=== PATIENT | male | born 1960 | race Two or more races ===

== ENCOUNTER → 2022-11-14 | Outpatient (CLI) | payer OTHER ==
--- NOTE | 2022-11-14 08:55 | CT ---
EXAMINATION TYPE: CT chest wo con DATE OF EXAM: 11/14/2022 COMPARISON: None HISTORY: Abnormal lung cox CT DLP: 143.[address] of the chest was performed with lung and mediastinal window settings submitted. The la ck of contrast limits evaluation of the vascular, mediastinal and parenchymal structures including th e upper abdomen. LUNGS: The lungs are clear and free of infiltrate. No atelectasis. No pulmonary nodule or mass is de tected. No pleural effusion. No CT evidence of interstitial lung disease. MEDIASTINUM/MELISSA: Thoracic aorta is of normal caliber with limited evaluation given lack of contrast . The heart is not enlarged. No evidence for mediastinal mass. No lymph nodes greater than 1cm. UPPER ABDOMEN: No significant abnormality is seen. OTHER: No significant other abnormality. IMPRESSION: 1. No discrete abnormality appreciated.
== END | disposition home or self-care (01) ==
LOC: RADCTMAIN 07:27
PROVIDERS: ATTEND Nurse Practitioner
DX: R91.8 Other nonspecific abnormal finding of lung field (principal)
CPT/HCPCS: 71250

== ENCOUNTER → 2022-11-21 | Outpatient (CLI) | payer OTHER ==
--- NOTE | 2022-11-21 12:25 | MR ---
EXAMINATION TYPE: MR brain wo/w con DATE OF EXAM: 11/21/2022 COMPARISON: None HISTORY: Headaches TECHNIQUE: Multiplanar, multisequence images of the brain and brainstem is performed without and with IV contras t, utilizing 6.5 mL intravenous Gadavist . FINDINGS: Diffusion weighted images demonstrate no evidence of a recent infarct or other diffusion ab normality. There multiple focal areas of scattered abnormal white matter signal bilaterally. The ve ntricular system and cisternal spaces are normal in size and appearance. The brain volume is age spencer ropriate. Midline structures demonstrate normal morphology. The craniocervical junction appears within normal limits. Post contrast images demonstrate area of enhancement involving the right orbit measuring 1.8 x 1.4 cm appears separate from the optic nerve on the superior right lateral margin of the orbit. Th e dural venous sinuses appear patent. There is a chronic sinusitis and right-sided mastoiditis.. IMPRESSION: 1. There is a large 1.8 cm intraorbital enhancing mass. Could be a vascular anomaly or neoplasm recom mend follow-up MRI. Report called to referring clinician 12:16 PM 11/23/2022. 2. Nonspecific white matter changes most typical of remote microvascular ischemia. 3. Chronic sinusitis and right-sided mastoiditis.
== END | disposition home or self-care (01) ==
LOC: RADMRIMAIN 09:14
PROVIDERS: ATTEND Nurse Practitioner
DX: G44.52 New daily persistent headache (NDPH) (principal); H53.9 Unspecified visual disturbance; J32.9 Chronic sinusitis, unspecified; I67.82 Cerebral ischemia; R20.2 Paresthesia of skin; R90.82 White matter disease, unspecified
CPT/HCPCS: 70553; A9585

== ENCOUNTER → 2022-11-29 | Outpatient (CLI) | payer OTHER ==
[2022-11-29 09:40] LABS: ALT 25 U/L (4-49); AST 27 U/L (17-59); African American GFR (CKD) >90 (>60 ml/min/1.73 sqM); Albumin 4.2 g/dL (3.5-5.0); Albumin/Globulin Ratio 1.4; Alkaline Phosphatase 51 U/L (38-126); Anion Gap 7 mmol/L; Blood Urea Nitrogen 26 mg/dL (9-20); Calcium 8.7 mg/dL (8.4-10.2); Carbon Dioxide 28 mmol/L (22-30); Chloride 105 mmol/L (98-107); Glucose 96 mg/dL (74-99); Magnesium 2.3 mg/dL (1.6-2.3); Non-African American GFR(CKD) >90 (>60 ml/min/1.73 sqM); Potassium 4.7 mmol/L (3.5-5.1); Sodium 140 mmol/L (137-145); Total Bilirubin 0.5 mg/dL (0.2-1.3); Total Protein 7.2 g/dL (6.3-8.2)
[2022-11-29 10:11] LABS: Basophils % (A) 0 %; Eosinophils # (A) 0.1 k/uL (0-0.7); Eosinophils % (A) 1 %; Lymphocytes # (A) 2.8 k/uL (1.0-4.8); Lymphocytes % (A) 33 %; MCH 31.4 pg (25.0-35.0); MCHC 32.5 g/dL (31.0-37.0); MCV 96.4 fL (80.0-100.0); Mean Platelet Volume 8.7; Monocytes # (A) 0.4 k/uL (0-1.0); Monocytes % (A) 5 %; Neutrophils # (A) 4.9 k/uL (1.3-7.7); Neutrophils % (A) 58 %; Platelet Count 192 k/uL (150-450); RBC 4.77 m/uL (4.30-5.90); RDW 12.4 % (11.5-15.5); WBC 8.5 k/uL (3.8-10.6)
[2022-11-29 23:22] LABS: Chol/HDL Ratio 2.92 Ratio; LDL Cholesterol,Calculated 118.6 mg/dL (0.0-131.0); VLDL Calculation 17.62 mg/dL (5.00-40.00)
== END | disposition home or self-care (01) ==
LOC: LABWHC1 07:36
PROVIDERS: ATTEND Nurse Practitioner
DX: Z12.11 Encounter for screening for malignant neoplasm of colon (principal); G44.52 New daily persistent headache (NDPH); H53.9 Unspecified visual disturbance; R20.2 Paresthesia of skin
CPT/HCPCS: 36415; 80053; 80061; 82272; 82306; 82607; 82746; 83735; 84153; 84439; 84443; 85025; 86803

== ENCOUNTER 2022-12-13 08:49 | Day surgery (SDC) | payer OTHER ==
[2022-12-07 09:47] VITALS: BMI 21.7
[~2022-12-13 08:49] MED LIST: LACTATED RINGERS 1,000 ML IV SCH; LIDOCAINE 1% (10MG/ML) FOR IV START INTRADERMA PRN
[2022-12-13 10:03] VITALS: RESP 16; TEMP 97.4
[2022-12-13] MEDS ORDERED: LIDOCAINE 2% INJ 20 MG/ML (2 ML VIAL) ONE (10:34)
[2022-12-13] MEDS ORDERED: PROPOFOL 10 MG/ML 20 ML VIAL IV ONE (10:34)
--- NOTE | 2022-12-13 10:43 | P.PCN ---
Date of Procedure: 12/13/22 Procedure(s) Performed: BRIEF HISTORY: Patient is a 62-year-old, pleasant, [place] male scheduled for an upper endoscopy as a part of surveillance of atrophic gastritis/intestinal metaplasia that was diagnosed when he was admitted to 8 years ago. Since then has been having surveillance upper endoscopy in 2 years and the last one was on approximately 2 years ago. PROCEDURE PERFORMED: Esophagogastroduodenoscopy With biopsy PREOPERATIVE DIAGNOSIS: Follow up in chronic atrophic gastritis with intestinal metaplasia IV sedation per anesthesia. PROCEDURE: After informed consent was obtained, the patient was brought into the endoscopy unit. IV sedation was administered by Anesthesia under continuous monitoring. Initially the Olympus GIF-140 video endoscope was inserted into the mouth. Esophagus intubated without any difficulty. It was gradually advanced into the stomach and duodenum and carefully examined. The bulb and the second part of the duodenum appeared normal. The scope at this time was withdrawn to the stomach, adequately insufflated with air, and upon careful examination, mucosa of the antrum patchy areas of erythema and biopsies were done in the antrum, along the incisura angularis and the proximal antrum. Mucosa of the body, cardia and the fundus appeared normal. biopsies were done from the body the stomach. The scope was then withdrawn into the esophagus. The GE junction was located at 41 cm from the incisors. The esophagus appeared normal. There were no erosions or ulcerations seen and the patient tolerated the procedure well. IMPRESSION: 1. Mild antral gastritis 2. No evidence of esophagitis or peptic ulcer disease RECOMMENDATIONS: The findings of this examination were discussed with the patient as well as his family.. He was advised to follow with the biopsy results. If the biopsy does not have any evidence of dysplasia he can have a repeat upper endoscopy every 2 years
[2022-12-13 11:20] VITALS: BP 136/89; PULSE 78
== END 2022-12-13 11:20 | disposition home or self-care (01) ==
LOC: ORWHC2ENDO 08:49
PROVIDERS: ATTEND Internal Medicine Gastroenterology
DX: K29.40 Chronic atrophic gastritis without bleeding (principal); K31.A0 Gastric intestinal metaplasia, unspecified; Z79.899 Other long term (current) drug therapy
CPT/HCPCS: 43239; J2704; J2001; 88305

== ENCOUNTER → 2023-01-30 | Outpatient (CLI) | payer OTHER ==
[2023-01-30 20:36] LABS: Basophils # (A) 0.05 X 10*3/uL (0.00-0.10); Basophils % (A) 0.7 %; Eosinophils # (A) 0.19 X 10*3/uL (0.04-0.35); Eosinophils % (A) 2.5 %; HCT 45.7 % (39.6-50.0); HGB 14.7 d/dL (13.0-17.0); Lymphocytes # (A) 2.15 X 10*3/uL (0.90-5.00); Lymphocytes % (A) 28.6 %; MCH 31.1 pg (27.0-32.0); MCHC 32.2 d/dL (32.0-37.0); MCV 96.6 FL (80.0-97.0); Mean Platelet Volume 11.2 FL (9.5-12.2); Monocytes # (A) 0.63 X 10*3/uL (0.20-1.00); Monocytes % (A) 8.4 %; NRBC Per 100 WBC 0 X 10*3/uL (0.00-0.01); Neutrophils % (A) 59.7 %; Platelet Count 219 X 10*3/uL (140-440); RBC 4.73 X 10*6/uL (4.40-5.60); RDW 13.2 % (11.5-14.5); WBC 7.53 X 10*3/uL (4.50-10.00)
[2023-01-30 21:04] LABS: BUN/Creat Ratio 14.44 Ratio (12.00-20.00); Calcium 9.3 mg/dL (8.7-10.3); Carbon Dioxide 26.6 mmol/L (21.6-31.8); Chloride 102 mmol/L (96-109); Glucose 99 mg/dL (70-110); Potassium 4.5 mmol/L (3.5-5.5); Sodium 140 mmol/L (135-145)
== END | disposition home or self-care (01) ==
LOC: LABWHC1 12:48
DX: C69.51 Malignant neoplasm of right lacrimal gland and duct (principal)
CPT/HCPCS: 36415; 80048; 85025; 85610

== ENCOUNTER → 2023-02-02 | Outpatient (CLI) | payer OTHER ==
[2023-02-02 19:39] LABS: INR <0.93 sec (0.93-1.11); Prothrombin Time 10.4 sec (9.9-11.9)
== END | disposition home or self-care (01) ==
LOC: LABWHC1 09:18
DX: C69.51 Malignant neoplasm of right lacrimal gland and duct (principal)
CPT/HCPCS: 36415; 85610

== ENCOUNTER → 2023-02-19 | Outpatient (CLI) | payer OTHER ==
[2023-02-19 17:26] LABS: ALT 15 U/L (10-49); AST 13 U/L (14-35); Albumin 4.1 d/dL (3.8-4.9); Albumin/Globulin Ratio 1.71 Ratio (1.60-3.17); Alkaline Phosphatase 80 U/L (41-126); Blood Urea Nitrogen 11.6 mg/dL (9.0-27.0); Chloride 104 mmol/L (96-109); Globulin 2.4 d/dL (1.6-3.3); Glucose 100 mg/dL (70-110); Magnesium 2.4 mg/dL (1.5-2.4); Potassium 4.6 mmol/L (3.5-5.5); Sodium 141 mmol/L (135-145); Total Bilirubin <0.2 mg/dL (0.3-1.2); Total Protein 6.5 d/dL (6.2-8.2)
[2023-02-19 18:21] LABS: HCT 40.6 % (39.6-50.0); HGB 13.2 d/dL (13.0-17.0); MCH 30.5 pg (27.0-32.0); MCHC 32.5 d/dL (32.0-37.0); MCV 93.8 FL (80.0-97.0); Mean Platelet Volume 11.1 FL (9.5-12.2); NRBC Per 100 WBC 0 X 10*3/uL (0.00-0.01); Platelet Count 109 X 10*3/uL (140-440); RBC 4.33 X 10*6/uL (4.40-5.60); RDW 12.3 % (11.5-14.5); WBC 5.53 X 10*3/uL (4.50-10.00)
[2023-02-19 18:50] LABS: Basophils # (A) 0.06 X 10*3/uL (0.00-0.10); Basophils % (A) 1.1 %; Eosinophils # (A) 0.04 X 10*3/uL (0.04-0.35); Eosinophils % (A) 0.7 %; Lymphocytes # (A) 1.86 X 10*3/uL (0.90-5.00); Lymphocytes % (A) 33.6 %; Monocytes # (A) 0.56 X 10*3/uL (0.20-1.00); Monocytes % (A) 10.1 %; Neutrophils # (A) 2.82 X 10*3/uL (1.80-7.70); Neutrophils % (A) 51.1 %; RBC Morphology Normal (Normal)
== END | disposition home or self-care (01) ==
LOC: LABWHC1 09:40
DX: C76.0 Malignant neoplasm of head, face and neck (principal)
CPT/HCPCS: 36415; 80053; 83735; 85025

== ENCOUNTER → 2023-03-29 | Outpatient (CLI) | payer OTHER ==
[2023-03-29 09:45] LABS: Basophils % (A) 0 %; Eosinophils # (A) 0.1 k/uL (0-0.7); Eosinophils % (A) 1 %; HGB 11.7 gm/dL (13.0-17.5); Lymphocytes # (A) 2.4 k/uL (1.0-4.8); Lymphocytes % (A) 31 %; MCH 31.8 pg (25.0-35.0); MCHC 33.5 g/dL (31.0-37.0); MCV 94.9 fL (80.0-100.0); Mean Platelet Volume 8.8; Monocytes # (A) 0.4 k/uL (0-1.0); Monocytes % (A) 5 %; Neutrophils # (A) 4.7 k/uL (1.3-7.7); Neutrophils % (A) 60 %; RBC 3.69 m/uL (4.30-5.90); RDW 13.7 % (11.5-15.5); WBC 7.8 k/uL (3.8-10.6)
[2023-03-29 10:32] LABS: Platelet Count 97 k/uL (150-450)
[2023-03-29 10:35] LABS: ALT 18 U/L (4-49); AST 20 U/L (17-59); African American GFR (CKD) >90 (>60 ml/min/1.73 sqM); Alkaline Phosphatase 72 U/L (38-126); Blood Urea Nitrogen 11 mg/dL (9-20); Calcium 8.8 mg/dL (8.4-10.2); Chloride 106 mmol/L (98-107); Glucose 104 mg/dL (74-99); Magnesium 2.2 mg/dL (1.6-2.3); Non-African American GFR(CKD) >90 (>60 ml/min/1.73 sqM); Potassium 4.3 mmol/L (3.5-5.1); Sodium 141 mmol/L (137-145); Total Bilirubin 0.3 mg/dL (0.2-1.3)
[2023-03-29 11:38] LABS: Albumin 3.8 g/dL (3.5-5.0); Albumin/Globulin Ratio 1.3; Anion Gap 10 mmol/L; Carbon Dioxide 25 mmol/L (22-30); Globulin 2.9 g/dL; Total Protein 6.7 g/dL (6.3-8.2)
== END | disposition home or self-care (01) ==
LOC: LABWHC1 09:07
PROVIDERS: ATTEND Internal Medicine
DX: C69.51 Malignant neoplasm of right lacrimal gland and duct (principal)
CPT/HCPCS: 36415; 80053; 83735; 85025

== ENCOUNTER → 2024-08-18 | Outpatient (CLI) | payer OTHER ==
[2024-08-18 15:29] LABS: Chol/HDL Ratio 2.96 Ratio; VLDL Calculation 16.18 mg/dL (5.00-40.00)
[2024-08-18 15:30] LABS: ALT 21 U/L (10-49); AST 33 U/L (14-35); Albumin 4.2 g/dL (3.8-4.9); Albumin/Globulin Ratio 1.68 Ratio (1.60-3.17); Alkaline Phosphatase 56 U/L (41-126); Blood Urea Nitrogen 15.5 mg/dL (9.0-27.0); Calcium 8.9 mg/dL (8.7-10.3); Chloride 107 mmol/L (96-109); Globulin 2.5 g/dL (1.6-3.3); Glucose 99 mg/dL (70-110); LDL Cholesterol,Calculated 125.5 mg/dL (0.0-131.0); Potassium 5.1 mmol/L (3.5-5.5); Sodium 142 mmol/L (135-145); Total Bilirubin 0.6 mg/dL (0.3-1.2); Total Protein 6.7 g/dL (6.2-8.2)
== END | disposition home or self-care (01) ==
LOC: LABWHC1 10:39
PROVIDERS: ATTEND Nurse Practitioner
DX: Z00.00 Encounter for general adult medical examination without abnormal findings (principal); Z13.220 Encounter for screening for lipoid disorders; Z13.1 Encounter for screening for diabetes mellitus
CPT/HCPCS: 36415; 80053; 80061